=== PATIENT | female | born 1970 | race Caucasian/White ===

== ENCOUNTER 2022-05-10 14:45 | Emergency (ER) | payer MEDICAID ==
[~2022-05-10] VITALS: Ht 167.6 cm; Wt 79.0 kg
--- NOTE | 2022-05-10 15:30 | NUR ---
advised charge of pt numbness
[2022-05-10 20:38] VITALS: BP 109/62
== END 2022-05-10 21:00 | disposition home or self-care (01) ==
LOC: ER 14:46
DX: M54.16 Radiculopathy, lumbar region (principal); R53.1 Weakness; R20.0 Anesthesia of skin
CPT/HCPCS: 72148; 99284

== ENCOUNTER 2023-10-11 13:32 | Outpatient (CLI) | payer MEDICAID | END 2023-10-11 23:59 | disposition home or self-care (01) | LOC: MRI 13:32 | PROVIDERS: ATTEND Physician Assistant | DX: M51.16 Intervertebral disc disorders with radiculopathy, lumbar region (principal); M47.22 Other spondylosis with radiculopathy, cervical region; M48.02 Spinal stenosis, cervical region; M51.27 Other intervertebral disc displacement, lumbosacral region; M48.07 Spinal stenosis, lumbosacral region; G62.9 Polyneuropathy, unspecified; R29.898 Other symptoms and signs involving the musculoskeletal system; M43.22 Fusion of spine, cervical region; G95.9 Disease of spinal cord, unspecified; Z72.0 Tobacco use | CPT/HCPCS: 72148 ==